=== PATIENT | female | born 1995 | race Caucasian/White ===

== ENCOUNTER 2017-01-15 14:24 | Emergency (ER) | payer MEDICAID, OTHER ==
--- NOTE | 2017-01-15 16:25 | XRay Report ---
FINAL REPORT PROCEDURE: XR FOOT 3+V RT TECHNIQUE: Three views of the right foot are obtained HISTORY: Blunt trauma/right foot pain and swelling. Ankle and foot pain post trauma. Something fell on rt foot+ankle COMPARISON: No prior studies are available for comparison. FINDINGS: Soft tissue swelling is suspected dorsally. There is no fracture or dislocation. No arthritic changes are seen. IMPRESSION: No fracture is seen.
--- NOTE | 2017-01-15 16:31 | XRay Report ---
FINAL REPORT PROCEDURE: XR ANKLE 3+V RT TECHNIQUE: Three views of the right ankle are obtained HISTORY: Blunt trauma/rt ankle painAnkle and foot pain post trauma. Something fell on rt foot+ankle COMPARISON: No prior studies are available for comparison. FINDINGS: Mild soft tissue swelling is seen. There is no fracture or dislocation. No arthritic changes are seen. IMPRESSION: No fracture is seen.
[2017-01-15 19:54] LABS: Bacteria,Urine 3+ /HPF (Negative); Bilirubin,Urine NEG (Negative); Blood,Urine NEG (Negative); Ketones,Urine NEG (Negative); Leukocyte Esterase,Urine SM (Negative); Mucus,Urine 3+ /HPF; Nitrite,Urine NEG (Negative); Protein,Urine <15 mg/dL mg/dL (Negative); Urobilinogen,Urine < 2.0 mg/dL (<2.0)
[2017-01-15 20:12] VITALS: BP 112/67
[2017-01-15] MEDS ORDERED: MOTRIN PO ONE (21:49)
--- NOTE | 2017-01-15 22:06 | Emergency Department Report ---
Entered by VINCENT LYMAN, acting as scribe for REJI SANTOS PA. ED Lower Extremity HPI - General Chief Complaint: Urogenital-Female Stated Complaint: RT FOOT INJURY,PAINFUL URINATION Time Seen by Provider: 01/15/17 19:13 Source: patient Mode of arrival: Ambulatory Limitations: No Limitations - History of Present Illness Initial Comments: 21 y/o female presents to the ED c/o right foot pain since yesterday. Associated symptoms include swelling, back pain and dysuria (x2 days) but denies numbness, tingling, snap/pop sensation, vaginal bleeding, discharge, abdominal pain, fever, chills, nausea and vomiting. Pain is described as 7/10 on a severity scale. Patient states she was carrying a heavy object at work and dropped it on top of right foot. Denies taking OTC meds. No alleviating factors . Last menstrual cycle was 01/09/2017. MD Complaint: ankle injury, foot injury Onset/Timin -: days(s) Injury: Ankle: Right (ankle swelling and pain), Foot: Right (foot swelling and pain) Type of Injury: blunt (object fell on her foot accidentally) Place: work Severity: moderate Severity scale (0 -10): 7 Improves With: rest Worsens With: weight bearing, movement, palpation Context: direct blow Associated Symptoms: swelling, able to partially bear weight, other (dysuria). denies: snap/pop sensation, numbness, tingling Treatments Prior to Arrival: other (none) - Related Data Previous Rx's Medication Instructions Recorded Last Taken Type HYDROcodone/APAP 5-325 [[place] 1 each PO Q4HR PRN #20 tablet 07/16/16 Unknown Rx 5/325] HYDROcodone/APAP 5-325 [[place] 1 each PO Q4HR PRN #20 tablet 07/16/16 Unknown Rx 5/325] Omeprazole 40 mg PO DAILY #30 capsule. 07/16/16 Unknown Rx Ibuprofen [Motrin] 600 mg PO Q8H PRN #12 tablet 01/15/17 Unknown Rx Nitrofurantoin Antelope/M-Cryst 100 mg PO Q12HR #14 capsule 01/15/17 Unknown Rx [Macrobid CAP] Phenazopyridine [Pyridium] 100 mg PO TID PRN #9 tab 01/15/17 Unknown Rx Allergies Allergy/AdvReac Type Severity Reaction Status Date / Time No Known Allergies Allergy Verified 07/16/16 21:55 ED Review of Systems Comment: All other systems reviewed and negative Constitutional: no symptoms reported. denies: chills, fever Respiratory: no symptoms reported Cardiovascular: denies: chest pain, palpitations, edema, syncope Gastrointestinal: denies: abdominal pain, nausea, vomiting, diarrhea, constipation, hematemesis, melena, hematochezia Genitourinary: dysuria. denies: urgency, frequency, hematuria, discharge, abnormal menses, dyspareunia Musculoskeletal: back pain, joint swelling, arthralgia, other (right foot pain, swelling, denies: numbness, tingling, snap/pop sensation). denies: myalgia Skin: denies: rash Neurological: abnormal gait (the left foot due to injury). denies: headache, weakness, numbness, paresthesias, confusion, vertigo ED Past Medical Hx - Past Medical History Previous Medical History?: Yes Hx GERD: Yes - Surgical History Past Surgical History?: No - Family History Family history: no significant - Social History Smoking Status: Never Smoker Substance Use Type: None Other Social History: single - Medications Home Medications: Home Medications Medication Instructions Recorded Confirmed Last Taken Type HYDROcodone/APAP 5-325 [[place] 1 each PO Q4HR PRN #20 tablet 07/16/16 Unknown Rx 5/325] HYDROcodone/APAP 5-325 [[place] 1 each PO Q4HR PRN #20 tablet 07/16/16 Unknown Rx 5/325] Omeprazole 40 mg PO DAILY #30 capsule. 07/16/16 Unknown Rx Ibuprofen [Motrin] 600 mg PO Q8H PRN #12 tablet 01/15/17 Unknown Rx Nitrofurantoin [place]/M-Cryst 100 mg PO Q12HR #14 capsule 01/15/17 Unknown Rx [Macrobid CAP] Phenazopyridine [Pyridium] 100 mg PO TID PRN #9 tab 01/15/17 Unknown Rx ED Physical Exam - General Limitations: No Limitations General appearance: alert, in no apparent distress - Head Head exam: Present: atraumatic, normocephalic, normal inspection - Eye Eye exam: Present: normal appearance, PERRL, EOMI. Absent: scleral icterus, conjunctival injection, periorbital swelling, periorbital tenderness Pupils: Present: normal accommodation - ENT ENT exam: Present: normal exam, normal orophraynx, mucous membranes moist, TM's normal bilaterally, normal external ear exam - Neck Neck exam: Present: normal inspection, full ROM, thyromegaly. Absent: tenderness, lymphadenopathy - Respiratory Respiratory exam: Present: normal lung sounds bilaterally. Absent: respiratory distress, wheezes, rales, rhonchi, stridor, chest wall tenderness, accessory muscle use, decreased breath sounds, prolonged expiratory - Cardiovascular Cardiovascular Exam: Present: regular rate, normal rhythm, normal heart sounds. Absent: systolic murmur, diastolic murmur - GI/Abdominal GI/Abdominal exam: Present: soft, normal bowel sounds. Absent: distended, tenderness, guarding, rebound, rigid - Extremities Exam Extremities exam: Present: normal inspection, full ROM, normal capillary refill. Absent: tenderness, pedal edema, joint swelling, calf tenderness, other (clubbing, cyanosis or edema, 2+ pulses) - Expanded Lower Extremity Exam Right Hip exam: Present: normal inspection, full ROM, pelvic stability. Absent: tenderness, swelling, abrasion, laceration, ecchymosis, deformity, crepidus, dislocation, erythema, external rotation, internal rotation, shortening Upper Leg exam: Present: normal inspection, full ROM. Absent: tenderness, swelling, abrasion, laceration, ecchymosis, deformity, crepidus, dislocation Knee exam: Present: normal inspection, full ROM, full knee extension. Absent: tenderness, swelling, abrasion, laceration, ecchymosis, deformity, crepidus, dislocation, erythema, effusion, pain w/ pronation/supination, posterior draw sign, pain/laxity with valgus, pain/laxity with varus Lower Leg exam: Present: normal inspection, full ROM. Absent: tenderness, swelling, abrasion, laceration, ecchymosis, deformity, crepidus, dislocation, erythema, Gerda's sign Ankle exam: Present: full ROM, tenderness, swelling (mild). Absent: normal inspection, abrasion, laceration, ecchymosis, deformity, crepidus, dislocation, erythema Foot/Toe exam: Present: full ROM, tenderness, swelling (mild). Absent: normal inspection, abrasion, laceration, ecchymosis, deformity, crepidus, dislocation, erythema, amputation, puncture wound, foreign body, calcaneal tenderness, tenderness at base of 5th metatarsal, nail avulsion, subungual hematoma Neuro vascular tendon exam: Present: no vascular compromise, motor deficit ( decreased strength 4/5 to RT foot and ankle due to trauma). Absent: pulse deficit, abnormal cap refill, sensory deficit, tendon deficit, extremity cold to touch, pallor, abnormal 2-point discrimination, decreased fine/light touch, foot drop, peroneal nerve deficit, significant pain with passive ROM of distal joint Gait: Positive: observed and limited by pain - Back Exam Back exam: Present: normal inspection, full ROM. Absent: tenderness, CVA tenderness (R), CVA tenderness (L), muscle spasm, paraspinal tenderness, vertebral tenderness, rash noted - Expanded Back Exam Expanded Back exam: Absent: saddle anesthesia Back exam: Negative Straight Leg Raising: Left, Right - Neurological Exam Neurological exam: Present: alert, oriented X3, abnormal gait (injury to left foot and ankle due to injuryand pain), reflexes normal - Psychiatric Psychiatric exam: Present: normal affect, normal mood - Skin Skin exam: Present: warm, dry, intact, normal color. Absent: rash ED Course Vital Signs 01/15/17 01/15/17 14:36 20:11 Temperature 98.3 F Pulse Rate 60 72 Respiratory 18 12 Rate Blood Pressure 134/74 Blood Pressure 112/67 [Left] O2 Sat by Pulse 100 100 Oximetry - Reevaluation(s) Reevaluation #1: 01/15/17 21:48 Sterling wrap placed to RT ankle and foot. Patient requested crutches so she was given crutches with training. Motrin 800 mg by mouth 01/15/17 21:58 - Orthopedic Splinting/Casting Injury #1 Side: right Lower Extremity Injury Location: ankle, foot Lower Extremity Immobilizer: Sterling wrap Other Orthopedic Equipment: crutches Additional Comments: good neurovascular check status post Sterling wrap ED Lower Extremity MDM - Lab Data Lab Results 01/15/17 Range/Units 19:25 Urine Color Yellow (Yellow) Urine Turbidity Slightly-cloudy (Clear) Urine pH 7.0 (5.0-7.0) Ur Specific [place] 1.018 (1.003-1.030) Urine Protein <15 mg/dl (Negative) mg/dL Urine Glucose (UA) Neg (Negative) mg/dL Urine Ketones Neg (Negative) mg/dL Urine Blood Neg (Negative) Urine Nitrite Neg (Negative) Urine Bilirubin Neg (Negative) Urine Urobilinogen < 2.0 (<2.0) mg/dL Ur Leukocyte Esterase Sm (Negative) Urine WBC (Auto) 8.0 H (0.0-6.0) /HPF Urine RBC (Auto) 2.0 (0.0-6.0) /HPF U Epithel Cells (Auto) 7.0 (0-13.0) /HPF Urine Bacteria (Auto) 3+ (Negative) /HPF Urine Mucus 3+ /HPF culture pending - Radiology Data Radiology results: report reviewed X-ray of rt foot and ankle reveal no acute fracture or dislocation. - Medical Decision Making ED course: Seen here at complaining of urinary burning and RT foot and ankle pain and swelling secondary to heavy object falling on her foot. She says she has pain when she walks. X-ray report revealed reveals no fracture or dislocation to RT foot and ankle. Sterling wrap and crutches prior to discharge. Acute 800 mg by mouth given in the emergency room. I instructed patient to rest , ice, compress and elevate affected area for 3 days and take Motrin for inflammation.Contusion to RT foot and ankle. Patient was understanding of discharge instructions and need to follow up with or fill if she is not better in 72 hours. I also instructed patient that she has a urinary tract infection and will be treated with antibiotic. Urine culture sent. Diagnostic/labs: X-ray of RT foot and ankle reveal no acute fracture or dislocation. Urinalysis positive for bacterial infection. Urine culture pending Assessment/plan 1. Acute cystitis without hematuria 2. Arthralgia multiple sites 3. Contusion Rt foot 4. Dysuria Patient discharged home with prescription for Motrin, Macrobid and to follow-up with orthopedic doctor and her primary care physician in 3 days. She voiced understanding. ED Disposition Clinical Impression: Arthralgia of multiple sites, Acute cystitis without hematuria, Dysuria Contusion of right foot Qualifiers: Encounter type: initial encounter Qualified Code(s): S90.31XA - Contusion of right foot, initial encounter Disposition: TO HOME OR SELFCARE Is pt being admited?: No Does the pt Need Aspirin: No Condition: Stable Instructions: Arthralgia (ED), Contusion in Adults (ED), RICE Therapy (ED), Urinary Tract Infection in Women (ED), Dysuria (ED) Additional Instructions: Rest ,Ice, compress elevate area for 3 days Follow up with orthopedist in 3 days if not better Take antibiotic for Bladder infection Increase fluid intake Follow up with PCP in 3-5 days for bladder infection Motrin for pain and contusion Prescriptions: Ibuprofen [Motrin] 600 mg PO Q8H PRN #12 tablet PRN Reason: Pain Nitrofurantoin [place]/M-Cryst [Macrobid CAP] 100 mg PO Q12HR #14 capsule Phenazopyridine [Pyridium] 100 mg PO TID PRN #9 tab PRN Reason: URINE BURNING Referrals: PRIMARY CARE, [Primary Care Provider] - 3-5 Days MAXWELL BRASWELL MD [Staff Physician] - 01/18/17 Forms: Work/School Release Form(ED) This documentation as recorded by the ESMER boyd ELIZABETH,accurately reflects the service I personally performed and the decisions made by TOM gallego VERONA A, PA.
== END 2017-01-15 22:21 | disposition home or self-care (01) ==
LOC: ED 14:24
DX: S90.31XA Contusion of right foot, initial encounter (principal); M25.50 Pain in unspecified joint; N30.01 Acute cystitis with hematuria; K21.9 Gastro-esophageal reflux disease without esophagitis; W20.8XXA Other cause of strike by thrown, projected or falling object, initial encounter; Y93.9 Activity, unspecified; Y92.9 Unspecified place or not applicable; Y99.9 Unspecified external cause status
CPT/HCPCS: 81001; 87086